=== PATIENT | female | born 1995 | race Caucasian/White ===

== ENCOUNTER 2024-02-17 17:46 | Outpatient (CLI) | payer MEDICAID, SELFPAY | END 2024-02-17 17:47 | disposition home or self-care (01) | LOC: AMB 02-18 06:22 | PROVIDERS: Visit Provider Emergency Medicine | DX: F10.129 Alcohol abuse with intoxication, unspecified (principal); F91.9 Conduct disorder, unspecified | CPT/HCPCS: A0425; A0427 ==

== ENCOUNTER 2024-02-17 18:08 | Emergency (ER) | payer MEDICAID, SELFPAY ==
[2024-02-17] VITALS (34 sets, daily range): BP systolic 90–133; BP diastolic 49–81; PULSE 79–129; RESP 16–24; TEMP 37.3; O2SAT 89–100
--- NOTE | 2024-02-17 18:18 | ED_ITS ---
HPI - General Adult General Date Seen: 02/17/24 <Nas Bhatti DO - Last Filed: 03/03/24 07:58> Chief complaint: Alcohol/Intoxication <Nas Bhatti DO - Last Filed: 03/03/24 07:58> Stated complaint: ETOH <Nas Bhatti DO - Last Filed: 03/03/24 07:58> Time Seen by Provider: 02/17/24 18:09 <Nas Bhatti DO - Last Filed: 03/03/24 07:58> Source: EMS and police <Nas Bhatti DO - Last Filed: 03/03/24 07:58> Mode of arrival: EMS <Nas Bhatti - Last Filed: 03/03/24 07:58> Limitations: altered mental status <Nas Bhatti - Last Filed: 03/03/24 07:58> History of Present Illness HPI narrative: Patient is a 28-year-old female presenting to emergency department for alcohol intoxication. Police and EMS were called to the scene by the patient's fiancee because the patient was running down the streets and yelling. Per the reports the patient has been drinking excessively today and her fiancee was concerned because she is prescribed oxycodone and he is unsure if she took extra of them today. She denies any other drug use. 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 She has been verbally aggressive since then but has not tried to run away and has not been physically aggressive. Police did put her on a transport hold. <Nas Bhatti DO - Last Filed: 03/03/24 07:58> Related Data Home medications: Home Medications Medication Instructions Recorded Confirmed ibuprofen 600 mg tablet 600 mg PO Q6H PRN 02/17/24 02/17/24 sumatriptan succinate 50 mg tablet 50 mg PO DIRECTED 02/17/24 02/18/24 <Nas Bhatti DO - Last Filed: 03/03/24 07:58> Allergies/adverse reactions: Allergies Allergy/AdvReac Type Severity Reaction Status Date / Time No Known Drug Allergies Allergy Verified 02/18/24 02:20 <Nas Bhatti DO - Last Filed: 03/03/24 07:58> Review of Systems Status of ROS: Reports: 10 or more systems reviewed and unremarkable except as noted in History and below <Nas Bhatti DO - Last Filed: 03/03/24 07:58> [facility] Social History: Social History Smoking Status: Unknown if ever smoked How often do you have a drink containing alcohol: 4 or more times a week How many standard drinks containing alcohol do you have on a typical day: 10 or more How often do you have six or more drinks on one occasion: Daily or almost daily AUDIT-C Alcohol total score: 12 Non-prescribed substance use: denies use <Nas Bhatti DO - Last Filed: 03/03/24 07:58> Exam Narrative: Exam Narrative: Const: Clearly intoxicated Eyes: PERRL, no conjunctival injection, and symmetrical lids HENT: Atraumatic external nose and ears. Moist mucous membranes. Neck: Symmetric, trachea midline, No thyromegaly. CVS: RRR, No murmurs or gallops. Peripheral pulses 2+ and equal in all extremities RESP: Unlabored respiratory effort. Clear to auscultation bilaterally. GI: Nontender/Nondistended, No rebound or guarding. MSK:Extremities w/o deformity, Normal Active ROM Skin: Warm, Dry. No rashes or lesions. Neuro: Normal Muscle tone, No focal neurological deficits. Psych: Awake, Alert, & Oriented x3. Appropriate mood and affect. <Nas Bhatti DO - Last Filed: 03/03/24 07:58> Const: Vital Signs, click to edit/add: Vital Signs - 24 hr 02/17/24 18:26 02/17/24 19:00 02/17/24 19:01 Temperature 99.2 F Pulse Rate 115 H Respiratory Rate 24 Blood Pressure 106/56 L Blood Pressure [Ri ght Upper Arm] 133/81 Pulse Oximetry 93 95 91 Oxygen Delivery Me thod Room Air 02/17/24 19:02 02/17/24 19:15 02/17/24 19:30 Temperature Pulse Rate 112 H 102 H 95 Respiratory Rate Blood Pressure Blood Pressure [Ri ght Upper Arm] Pulse Oximetry 93 94 94 Oxygen Delivery Me thod 02/17/24 19:31 02/17/24 19:42 02/17/24 19:45 Temperature Pulse Rate 95 92 Respiratory Rate 16 Blood Pressure 97/59 L Blood Pressure [Ri ght Upper Arm] Pulse Oximetry 95 100 Oxygen Delivery Me thod 02/17/24 20:00 02/17/24 20:01 02/17/24 20:15 Temperature Pulse Rate 88 88 129 H Respiratory Rate Blood Pressure 93/57 L Blood Pressure [Ri ght Upper Arm] Pulse Oximetry 98 97 98 Oxygen Delivery Me thod 02/17/24 20:30 02/17/24 20:32 02/17/24 20:45 Temperature Pulse Rate 94 92 109 H Respiratory Rate Blood Pressure 91/49 L Blood Pressure [Ri ght Upper Arm] Pulse Oximetry 95 94 97 Oxygen Delivery Mt thod 02/17/24 21:00 02/17/24 21:01 02/17/24 21:15 Temperature Pulse Rate 117 H 108 H 96 Respiratory Rate Blood Pressure 99/60 Blood Pressure [Ri ght Upper Arm] Pulse Oximetry 95 93 93 Oxygen Delivery Me thod 02/17/24 21:30 02/17/24 21:45 02/17/24 22:00 Temperature Pulse Rate 96 93 88 Respiratory Rate Blood Pressure Blood Pressure [Ri ght Upper Arm] Pulse Oximetry 94 96 93 Oxygen Delivery Me thod 02/17/24 22:02 02/17/24 22:15 02/17/24 22:30 Temperature Pulse Rate 87 97 89 Respiratory Rate Blood Pressure 93/51 L Blood Pressure [Ri ght Upper Arm] Pulse Oximetry 93 93 89 Oxygen Delivery Me thod 02/17/24 22:34 02/17/24 22:35 02/17/24 22:45 Temperature Pulse Rate 86 86 90 Respiratory Rate Blood Pressure 95/55 L Blood Pressure [Ri ght Upper Arm] Pulse Oximetry 95 95 95 Oxygen Delivery Me thod 02/17/24 23:00 02/17/24 23:01 02/17/24 23:02 Temperature Pulse Rate 96 87 89 Respiratory Rate Blood Pressure 90/56 L Blood Pressure [Ri ght Upper Arm] Pulse Oximetry 93 96 95 Oxygen Delivery Me thod 02/17/24 23:15 02/17/24 23:30 02/17/24 23:31 Temperature Pulse Rate 87 79 85 Respiratory Rate Blood Pressure 95/57 L Blood Pressure [Ri ght Upper Arm] Pulse Oximetry 94 97 97 Oxygen Delivery Me thod 02/17/24 23:45 02/18/24 00:00 02/18/24 00:01 Temperature Pulse Rate 94 84 82 Respiratory Rate Blood Pressure 98/47 L Blood Pressure [Ri ght Upper Arm] Pulse Oximetry 99 98 98 Oxygen Delivery Me thod 02/18/24 00:01 02/18/24 00:01 02/18/24 00:02 Temperature Pulse Rate 82 82 84 Respiratory Rate Blood Pressure 98/47 L 98/47 L Blood Pressure [Ri ght Upper Arm] Pulse Oximetry 98 98 97 Oxygen Delivery Me thod 02/18/24 00:09 02/18/24 00:15 02/18/24 00:30 Temperature Pulse Rate 84 92 97 Respiratory Rate Blood Pressure 96/59 L Blood Pressure [Ri ght Upper Arm] Pulse Oximetry 95 98 97 Oxygen Delivery Me thod 02/18/24 00:31 02/18/24 01:01 02/18/24 01:31 Temperature Pulse Rate 83 77 78 Respiratory Rate 20 20 Blood Pressure 96/60 105/74 100/64 Blood Pressure [Ri ght Upper Arm] Pulse Oximetry 95 99 99 Oxygen Delivery Me thod 02/18/24 02:01 02/18/24 02:31 02/18/24 04:01 Temperature Pulse Rate 78 84 73 Respiratory Rate 20 20 20 Blood Pressure 97/56 L 99/50 L 98/57 L Blood Pressure [Ri ght Upper Arm] Pulse Oximetry 100 100 99 Oxygen Delivery Me thod 02/18/24 05:31 02/18/24 06:01 Temperature Pulse Rate 90 85 Respiratory Rate 20 20 Blood Pressure 100/65 105/50 L Blood Pressure [Ri ght Upper Arm] Pulse Oximetry 94 93 Oxygen Delivery Me thod <Nas Bhatti, DO - Last Filed: 03/03/24 07:58> Vital Signs, click to edit/add: Vital Signs - 24 hr 02/17/24 18:26 02/17/24 19:00 02/17/24 19:01 Temperature 99.2 F Pulse Rate 115 H Respiratory Rate 24 Blood Pressure 106/56 L Blood Pressure [Ri ght Upper Arm] 133/81 Pulse Oximetry 93 95 91 Oxygen Delivery Me thod Room Air 02/17/24 19:02 02/17/24 19:15 02/17/24 19:30 Temperature Pulse Rate 112 H 102 H 95 Respiratory Rate Blood Pressure Blood Pressure [Ri ght Upper Arm] Pulse Oximetry 93 94 94 Oxygen Delivery Me thod 02/17/24 19:31 02/17/24 19:42 02/17/24 19:45 Temperature Pulse Rate 95 92 Respiratory Rate 16 Blood Pressure 97/59 L Blood Pressure [Ri ght Upper Arm] Pulse Oximetry 95 100 Oxygen Delivery Me thod 02/17/24 20:00 02/17/24 20:01 02/17/24 20:15 Temperature Pulse Rate 88 88 129 H Respiratory Rate Blood Pressure 93/57 L Blood Pressure [Ri ght Upper Arm] Pulse Oximetry 98 97 98 Oxygen Delivery Me thod 02/17/24 20:30 02/17/24 20:32 02/17/24 20:45 Temperature Pulse Rate 94 92 109 H Respiratory Rate Blood Pressure 91/49 L Blood Pressure [Ri ght Upper Arm] Pulse Oximetry 95 94 97 Oxygen Delivery Me thod 02/17/24 21:00 02/17/24 21:01 02/17/24 21:15 Temperature Pulse Rate 117 H 108 H 96 Respiratory Rate Blood Pressure 99/60 Blood Pressure [Ri ght Upper Arm] Pulse Oximetry 95 93 93 Oxygen Delivery Me thod 02/17/24 21:30 02/17/24 21:45 02/17/24 22:00 Temperature Pulse Rate 96 93 88 Respiratory Rate Blood Pressure Blood Pressure [Ri ght Upper Arm] Pulse Oximetry 94 96 93 Oxygen Delivery Me thod 02/17/24 22:02 02/17/24 22:15 02/17/24 22:30 Temperature Pulse Rate 87 97 89 Respiratory Rate Blood Pressure 93/51 L Blood Pressure [Ri ght Upper Arm] Pulse Oximetry 93 93 89 Oxygen Delivery Me thod 02/17/24 22:34 02/17/24 22:35 02/17/24 22:45 Temperature Pulse Rate 86 86 90 Respiratory Rate Blood Pressure 95/55 L Blood Pressure [Ri ght Upper Arm] Pulse Oximetry 95 95 95 Oxygen Delivery Me thod 02/17/24 23:00 02/17/24 23:01 02/17/24 23:02 Temperature Pulse Rate 96 87 89 Respiratory Rate Blood Pressure 90/56 L Blood Pressure [Ri ght Upper Arm] Pulse Oximetry 93 96 95 Oxygen Delivery Me thod 02/17/24 23:15 02/17/24 23:30 02/17/24 23:31 Temperature Pulse Rate 87 79 85 Respiratory Rate Blood Pressure 95/57 L Blood Pressure [Ri ght Upper Arm] Pulse Oximetry 94 97 97 Oxygen Delivery Me thod 02/17/24 23:45 02/18/24 00:00 02/18/24 00:01 Temperature Pulse Rate 94 84 82 Respiratory Rate Blood Pressure 98/47 L Blood Pressure [Ri ght Upper Arm] Pulse Oximetry 99 98 98 Oxygen Delivery Me thod 02/18/24 00:01 02/18/24 00:01 02/18/24 00:02 Temperature Pulse Rate 82 82 84 Respiratory Rate Blood Pressure 98/47 L 98/47 L Blood Pressure [Ri ght Upper Arm] Pulse Oximetry 98 98 97 Oxygen Delivery Me thod 02/18/24 00:09 02/18/24 00:15 02/18/24 00:30 Temperature Pulse Rate 84 92 97 Respiratory Rate Blood Pressure 96/59 L Blood Pressure [Ri ght Upper Arm] Pulse Oximetry 95 98 97 Oxygen Delivery Me thod 02/18/24 00:31 02/18/24 01:01 02/18/24 01:31 Temperature Pulse Rate 83 77 78 Respiratory Rate 20 20 Blood Pressure 96/60 105/74 100/64 Blood Pressure [Ri ght Upper Arm] Pulse Oximetry 95 99 99 Oxygen Delivery Me thod 02/18/24 02:01 02/18/24 02:31 02/18/24 04:01 Temperature Pulse Rate 78 84 73 Respiratory Rate 20 20 20 Blood Pressure 97/56 L 99/50 L 98/57 L Blood Pressure [Ri ght Upper Arm] Pulse Oximetry 100 100 99 Oxygen Delivery Me thod 02/18/24 05:31 02/18/24 06:01 Temperature Pulse Rate 90 85 Respiratory Rate 20 20 Blood Pressure 100/65 105/50 L Blood Pressure [Ri ght Upper Arm] Pulse Oximetry 94 93 Oxygen Delivery Me thod <Marilynn Jacome MD - Last Filed: 02/18/24 07:17> Course Course ED Course: Per nursing team, patient ambulatory, fully alert, conversational and sober. Please hold will be lifted at this time and she will be sent home in a taxi. No further care was needed for the remainder of the night during my shift. dr. jacome <Marilynn Jacome MD - Last Filed: 02/18/24 07:17> Vital Signs Vital signs: Initial Vital Signs Temperature 99.2 F 02/17/24 18:26 Temperature Source Temporal Artery Scan 02/17/24 18:26 Respiratory Rate 02/17/24 18:26 Blood Pressure 133/81 02/17/24 18:26 Blood Pressure Mean 98 02/17/24 18:26 Blood Pressure Position Supine 02/17/24 18:26 Pulse Oximetry 93 02/17/24 18:26 Oxygen Delivery Method Room Air 02/17/24 18:26 Vital Signs Temperature 99.2 F 02/17/24 18:26 Respiratory Rate 24 02/17/24 18:26 Blood Pressure 133/81 02/17/24 18:26 Pulse Oximetry 93 02/17/24 18:26 Oxygen Delivery Method Room Air 02/17/24 18:26 Temperature 99.2 F 02/17/24 18:26 Pulse Rate 79 02/18/24 07:15 Respiratory Rate 16 02/18/24 07:15 Blood Pressure 91/49 L 02/18/24 07:01 Pulse Oximetry 93 02/18/24 07:15 Oxygen Delivery Method Room Air 02/18/24 07:15 <Nas Bhatti DO - Last Filed: 03/03/24 07:58> Initial Vital Signs Temperature 99.2 F 02/17/24 18:26 Temperature Source Temporal Artery Scan 02/17/24 18:26 Respiratory Rate 02/17/24 18:26 Blood Pressure 133/81 02/17/24 18:26 Blood Pressure Mean 98 02/17/24 18:26 Blood Pressure Position Supine 02/17/24 18:26 Pulse Oximetry 93 02/17/24 18:26 Oxygen Delivery Method Room Air 02/17/24 18:26 Vital Signs Temperature 99.2 F 02/17/24 18:26 Respiratory Rate 24 02/17/24 18:26 Blood Pressure 133/81 02/17/24 18:26 Pulse Oximetry 93 02/17/24 18:26 Oxygen Delivery Method Room Air 02/17/24 18:26 Temperature 99.2 F 02/17/24 18:26 Pulse Rate 79 02/18/24 07:15 Respiratory Rate 16 02/18/24 07:15 Blood Pressure 91/49 L 02/18/24 07:01 Pulse Oximetry 93 02/18/24 07:15 Oxygen Delivery Method Room Air 02/18/24 07:15 <Marilynn Jacome MD - Last Filed: 02/18/24 07:17> Medications Administered Medications: Discontinued Medications Generic Name Dose Route Start Last Admin Trade Name Freq PRN Reason Stop Dose Admin Folic Acid 1 mg/ Multivitamins 1,011.2 mls @ 252.8 mls/hr 02/17/24 19:51 02/18/24 00:49 10 ml/ Thiamine HCl 100 mg/ IV 02/17/24 23:50 Infused Sodium Chloride .Q4H DEDE Infusion Olanzapine 10 mg 02/17/24 18:26 02/17/24 19:16 Olanzapine 5 Mg/Ml Inj IM 02/17/24 18:27 Not Given ONCE ONE Olanzapine 5 mg 02/17/24 18:42 02/17/24 18:59 Olanzapine 5 Mg/Ml Inj IVP 02/17/24 18:43 5 mg ONCE ONE Administration <Nas Bhatti DO - Last Filed: 03/03/24 07:58> Discontinued Medications Generic Name Dose Route Start Last Admin Trade Name Freq PRN Reason Stop Dose Admin Folic Acid 1 mg/ Multivitamins 1,011.2 mls @ 252.8 mls/hr 02/17/24 19:51 02/18/24 00:49 10 ml/ Thiamine HCl 100 mg/ IV 02/17/24 23:50 Infused Sodium Chloride .Q4H DEDE Infusion Olanzapine 10 mg 02/17/24 18:26 02/17/24 19:16 Olanzapine 5 Mg/Ml Inj IM 02/17/24 18:27 Not Given ONCE ONE Olanzapine 5 mg 02/17/24 18:42 02/17/24 18:59 Olanzapine 5 Mg/Ml Inj IVP 02/17/24 18:43 5 mg ONCE ONE Administration <Marilynn Jacome MD - Last Filed: 02/18/24 07:17> Medical Decision Making MDM Narrative Medical decision making narrative: Patient is a 28-year-old female presenting for on-call intoxication. BMP, CBC, urine drug screen, EtOH, test all ordered. Patient's initial a refusing all treatment. Considering she is very intoxicated and is not safe to leave on her own I did place her on a hold until she is sober. Patient was also getting very anxious and was requesting something for that so Zyprexa was given. Also ordered a banana bag. CBC and BMP showed no concerning findings. The urine drug screen shows no concerning findings. Her alcohol level is 0.34. She does not want anyone to know she is here and states we cannot tell anyone where she is if they call <Nas Bhatti, DO - Last Filed: 03/03/24 07:58> Lab Data Labs: Lab Results 02/17/24 02/17/24 Range/Units 18:16 18:50 WBC 3.46 L (4.50-11.00) K/uL RBC 4.81 (4.00-5.20) m/uL Hgb 14.2 (12.0-16.0) gm/dL Hct 42.4 (33.0-51.0) % MCV 88 (80-100) fL MCH 30 (26-34) pg MCHC 34 (32-36) gm/dL RDW Coeff of Simran 12.2 (11.5-15.5) % Plt Count 267 (140-440) K/uL Neut % (Auto) 45.6 (42.0-72.0) % Lymph % (Auto) 36.4 (20-44) % [place] % (Auto) 13.6 H (0.0-11.0) % Eos % (Auto) 3.2 (0.0-7.0) % Baso % (Auto) 1.2 (0.0-3.0) % Neut # (Auto) 1.60 L (1.7-7.0) K/uL Lymph # (Auto) 1.30 (0.90-2.90) K/uL [place] # (Auto) 0.50 (0.00-0.90) K/UL Eos # (Auto) 0.10 (0.00-0.50) K/uL Baso # (Auto) 0.00 (0.00-0.30) K/uL Abs Immat Gran (auto) 0.00 (0.00-0.30) K/uL Imm/Tot Granulo (auto) 0.0 % Sodium 148 (135-149) mmol/L Potassium 3.8 (3.6-5.1) mmol/L Chloride 114 (96-114) mmol/L Carbon Dioxide 21 (20-32) mmol/L Anion Gap 13 (7-15) mEq/L BUN 8 (5-24) mg/dL Creatinine 0.7 (0.5-1.5) mg/dL Estimated GFR 122 ml/min Glucose 92 (60-115) mg/dL Calcium 8.6 (8.4-10.6) mg/dL HCG, Qual Negative (Negative) Urine Opiates Screen Negative (Negative) Ur Oxycodone Screen Negative (Negative) Urine Methadone Screen Negative (Negative) Ur Barbiturates Screen Negative (Negative) U Tricyclic Antidepress Negative (Negative) Ur Phencyclidine Scrn Negative (Negative) Ur Amphetamines Screen Negative (Negative) U Methamphetamines Scrn Negative (Negative) U Benzodiazepines Scrn Negative (Negative) Urine Cocaine Screen Negative (Negative) U Marijuana (THC) Screen Negative (Negative) Ur Drug Screen Comment See Note Ethyl Alcohol 0.34 H* (0.01-0.03) % <Nas Bhatti, DO - Last Filed: 03/03/24 07:58> Lab Results 02/17/24 02/17/24 Range/Units 18:16 18:50 WBC 3.46 L (4.50-11.00) K/uL RBC 4.81 (4.00-5.20) m/uL Hgb 14.2 (12.0-16.0) gm/dL Hct 42.4 (33.0-51.0) % MCV 88 (80-100) fL MCH 30 (26-34) pg MCHC 34 (32-36) gm/dL RDW Coeff of Simran 12.2 (11.5-15.5) % Plt Count 267 (140-440) K/uL Neut % (Auto) 45.6 (42.0-72.0) % Lymph % (Auto) 36.4 (20-44) % [place] % (Auto) 13.6 H (0.0-11.0) % Eos % (Auto) 3.2 (0.0-7.0) % Baso % (Auto) 1.2 (0.0-3.0) % Neut # (Auto) 1.60 L (1.7-7.0) K/uL Lymph # (Auto) 1.30 (0.90-2.90) K/uL [place] # (Auto) 0.50 (0.00-0.90) K/UL Eos # (Auto) 0.10 (0.00-0.50) K/uL Baso # (Auto) 0.00 (0.00-0.30) K/uL Abs Immat Gran (auto) 0.00 (0.00-0.30) K/uL Imm/Tot Granulo (auto) 0.0 % Sodium 148 (135-149) mmol/L Potassium 3.8 (3.6-5.1) mmol/L Chloride 114 (96-114) mmol/L Carbon Dioxide 21 (20-32) mmol/L Anion Gap 13 (7-15) mEq/L BUN 8 (5-24) mg/dL Creatinine 0.7 (0.5-1.5) mg/dL Estimated GFR 122 ml/min Glucose 92 (60-115) mg/dL Calcium 8.6 (8.4-10.6) mg/dL HCG, Qual Negative (Negative) Urine Opiates Screen Negative (Negative) Ur Oxycodone Screen Negative (Negative) Urine Methadone Screen Negative (Negative) Ur Barbiturates Screen Negative (Negative) U Tricyclic Antidepress Negative (Negative) Ur Phencyclidine Scrn Negative (Negative) Ur Amphetamines Screen Negative (Negative) U Methamphetamines Scrn Negative (Negative) U Benzodiazepines Scrn Negative (Negative) Urine Cocaine Screen Negative (Negative) U Marijuana (THC) Screen Negative (Negative) Ur Drug Screen Comment See Note Ethyl Alcohol 0.34 H* (0.01-0.03) % <Marilynn Jacome MD - Last Filed: 02/18/24 07:17> Discharge Plan Discharge Clinical Impression: Alcoholic intoxication <Nas Bhatti DO - Last Filed: 03/03/24 07:58> Patient Disposition: Home, Self-Care <Nas Bhatti DO - Last Filed: 03/03/24 07:58> Condition: Improved <Nas Bhatti DO - Last Filed: 03/03/24 07:58> Instructions: Abuse of Alcohol (DC) <Nas Bhatti DO - Last Filed: 03/03/24 07:58> Additional Instructions: It is important you stop drinking so much alcohol. You need to see a counselor that specializes in alcohol dependence. Return to emergency department for new worsening symptoms <Nas Bhatti DO - Last Filed: 03/03/24 07:58> Prescriptions: No Action sumatriptan succinate 50 mg tablet 50 mg PO DIRECTED Rx Instructions: TAKE 1 TABLET BY MOUTH NEEDED FOR MIGRAINE. MAY REPEAT DOSE ONCE IN 2 HOURS IF MIGRAINE UNRESOLVED. NO MORE THAN 200 MG PER DAY ibuprofen 600 mg tablet 600 mg PO Q6H PRN <Nas Bhatti DO - Last Filed: 03/03/24 07:58> Follow Up/Referrals: Provider,Not a Local [Referring] - <DO Minesh Joshi Last Filed: 03/03/24 07:58> Stand Alone Forms: [employer] Info Instructions <Nas Bhatti DO - Last Filed: 03/03/24 07:58>
[2024-02-17 18:51] LABS: Basophils Percent Auto 1.2 % (0.0-3.0); Eosinophils Percent Auto 3.2 % (0.0-7.0); Hematocrit 42.4 % (33.0-51.0); Hemoglobin* 14.2 gm/dL (12.0-16.0); Lymphocytes Percent Auto 36.4 % (20-44); Mean Corpuscular HGB Conc 34 gm/dL (32-36); Mean Corpuscular Hemoglobin 30 pg (26-34); Mean Corpuscular Volume 88 fL (80-100); Monocytes Percent Auto 13.6 % (0.0-11.0); Neutrophils Percent Auto 45.6 % (42.0-72.0); Platelet Count* 267 K/uL (140-440); RDW Coefficient of Variation % 12.2 % (11.5-15.5); Red Blood Count 4.81 m/uL (4.00-5.20); White Blood Count* 3.46 K/uL (4.50-11.00)
[2024-02-17] MEDS: OLANZapine 5 MG/ML inj IVP (18:59)
[2024-02-17 19:06] LABS: Amphetamine Screen Urine Negative (Negative); Barbiturate Screen Urine Negative (Negative); Benzodiazepines Screen Urine Negative (Negative); Cannabinoid Screen Urine Negative (Negative); Cocaine Screen Urine Negative (Negative); Methadone Screen Urine Negative (Negative); Methamphetamines Screen Urine Negative (Negative); Opiate Screen Urine Negative (Negative); Oxycodone Screen Urine Negative (Negative); Phencyclidine Screen Urine Negative (Negative); Tricyclic Antidepressant Urine Negative (Negative)
[2024-02-17 19:07] LABS: Slide Review Reflex No
[2024-02-17 19:08] LABS: Chloride* 114 mmol/L (96-114); Potassium* 3.8 mmol/L (3.6-5.1); Sodium* 148 mmol/L (135-149)
[2024-02-17 19:11] LABS: Anion Gap 13 mEq/L (7-15); Carbon Dioxide* 21 mmol/L (20-32); Creatinine* 0.7 mg/dL (0.5-1.5); Estimated Glomerular Filt Rate 122 ml/min
[2024-02-17 19:12] LABS: Blood Urea Nitrogen* 8 mg/dL (5-24); Calcium* 8.6 mg/dL (8.4-10.6); Glucose* 92 mg/dL (60-115)
[2024-02-17 19:21] LABS: Ethanol* 0.34 % (0.01-0.03)
[2024-02-17 19:30] LABS: HCG Qualitative Serum* Negative (Negative)
[2024-02-18] VITALS (20 sets, daily range): BP systolic 91–105; BP diastolic 47–74; PULSE 73–97; RESP 16–20; O2SAT 92–100
== END 2024-02-18 07:46 | disposition home or self-care (01) ==
PROVIDERS: Emergency Provider Student in an Organized Health Care Education/Training Program; PCP Family Medicine
DX: F10.129 Alcohol abuse with intoxication, unspecified (principal)
CPT/HCPCS: 36415; 80048; 80306; 82077; 84703; 85025; 94761; 96374; 96375; 99283; 99284; J3411; J7030